=== PATIENT | female | born 1970 | race Caucasian/White ===

== ENCOUNTER 2016-11-04 15:17 | Emergency (ER) | payer OTHER, BC ==
[~2016-11-04] VITALS: Ht 162.6 cm; Wt 96.1 kg
[~2016-11-04 15:17] MED LIST: CLX20 PO; CZR50 PO; DEXILANT PO; DILT240C9 PO; DYZ PO; FLUC100T PO; LEVO125T72 PO; LORA-741 PO; NYSS/ PO; POTA-335 PO; PRED10TA PO; SNG10 PO; ZOLP5TAB PO; [UNRECOGNIZED DRUG - CODE] PO
[2016-11-04 15:29] VITALS: TEMP 36.6; Ht 162.6 cm; Wt 96.1 kg
[2016-11-04] MEDS ORDERED: CLR10 PO (15:48)
[2016-11-04] MEDS ORDERED: LEVO-519 PO (15:48)
[2016-11-04] MEDS ORDERED: PRLSR20 PO (15:48)
[2016-11-04] MEDS ORDERED: ACETAMINOPHEN 500 MG TAB PO STA (16:02)
[2016-11-04] MEDS ORDERED: TRAMADOL HCL 50 MG TAB PO STA (16:02)
[2016-11-04] MEDS ORDERED: ONDA4TAB10 SL (16:09)
[2016-11-04] MEDS ORDERED: TRAM-10 PO (16:09)
[2016-11-04] MEDS ORDERED: ONDANSETRON 4MG OD TAB PO ONE (16:15)
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
[2016-11-04 16:23] VITALS: BP 138/98; PULSE 62; O2SAT 97
[2017-02-04] MEDS ORDERED: ARFO15NE NEB (11:07)
[2017-02-04] MEDS ORDERED: ALBINS/ NEB (11:48)
[2017-02-04] MEDS ORDERED: MONT1TAB3 PO (15:48)
[2017-02-04] MEDS ORDERED: CITA40TA12 PO (15:48)
[2017-02-04] MEDS ORDERED: TRIATAB3 PO (15:48)
[2017-02-04] MEDS ORDERED: DILT120C68 PO (15:48)
[2017-02-04] MEDS ORDERED: FLUT0.15 NAE (15:48)
[2017-02-04] MEDS ORDERED: NEOM1SOL7 OTB (17:43)
== END 2016-11-04 16:25 | disposition home or self-care (01) ==
LOC: C.EDB 15:19 → C.EDD 16:25
DX: S06.0X0A Concussion without loss of consciousness, initial encounter (principal); S16.1XXA Strain of muscle, fascia and tendon at neck level, initial encounter; I10 Essential (primary) hypertension; E03.9 Hypothyroidism, unspecified; J45.909 Unspecified asthma, uncomplicated; G47.33 Obstructive sleep apnea (adult) (pediatric); Z79.899 Other long term (current) drug therapy; Z88.2 Allergy status to sulfonamides; Z88.5 Allergy status to narcotic agent; Z88.8 Allergy status to other drugs, medicaments and biological substances; V43.52XA Car driver injured in collision with other type car in traffic accident, initial encounter

== ENCOUNTER → 2016-11-07 | Outpatient (CLI) | payer OTHER, BC ==
[~2016-11-07] MED LIST changes: +ALBINS/ NEB; +AMOX875T PO; +ARFO15NE NEB; +AZIT250T PO; +BENZ100C84 PO; +CETI10TA84 PO; +CITA40TA12 PO; +CLR10 PO; -CLX20 PO; +CYCL10TA6 PO; -CZR50 PO; -DEXILANT PO; +DILT120C68 PO; -DILT240C9 PO; -DYZ PO; -FLUC100T PO; +FLUT0.15 NAE; +LEVO-519 PO; -LEVO125T72 PO; +LEVO150T9 PO; -LORA-741 PO; +MECL1TAB42 PO; +MONT1TAB3 PO; +NEOM1SOL7 OTB; -NYSS/ PO; +OMEP40CA41 PO; +ONDA4TAB10 SL; -POTA-335 PO; -PRED10TA PO; +PRED20TA PO; +PRLSR20 PO; -SNG10 PO; +TRAM-10 PO; +TRIATAB3 PO; +VNTHFA/IN INH; -ZOLP5TAB PO; -[UNRECOGNIZED DRUG - CODE] PO
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
== END | disposition home or self-care (01) ==
LOC: C.RAD1850 14:07
PROVIDERS: ATTEND Family Medicine
DX: S06.0X9A Concussion with loss of consciousness of unspecified duration, initial encounter (principal); X58.XXXA Exposure to other specified factors, initial encounter

== ENCOUNTER → 2017-01-23 | Outpatient (CLI) | payer OTHER, BC ==
[~2017-01-23] MED LIST changes: +GADAVIST IV PRN
--- NOTE | 2017-01-23 08:42 | DIAGNOSTIC IMAGING REPORT ---
MRI OF THE BRAIN COMBO CLINICAL HISTORY: Postconcussion syndrome. Vertigo. Tinnitus. COMPARISON STUDY: MRI of the brain dated 10/18/2013 and 01/05/2010. TECHNIQUE: MRI of the brain was performed utilizing various T1 and T2-weighted sequences in the axial, sagittal, and coronal planes. Contrast-enhanced sequences were acquired following the administration of 9 cc of Gadavist. FINDINGS: Brain parenchyma: There is a 6 mm enhancing extra-axial nodule along the right aspect of the anterior midline falx seen on axial postcontrast image #10. This appears to demonstrate a dural tail and is typical in appearance for a small meningioma. There is no associated mass effect. No additional enhancing lesion is seen. The brain parenchyma is otherwise normal in appearance. There is no hemorrhage or mass effect. There is no restricted diffusion to suggest acute ischemia. Polanco-white matter differentiation is preserved. No extra-axial fluid collection is seen. The cerebellar tonsils are normal in configuration. Ventricles, sulci, and cisterns: Normal in configuration. Pituitary and sella: Partially empty sella is incidentally noted. Intracranial vasculature: Normal flow voids are maintained at the skull base. Orbits: The bony orbits are grossly intact. Orbital contents are normal in appearance. Sinuses and mastoids: There is trace mucosal thickening within the maxillary antra. The remaining paranasal sinuses and the mastoid air cells are clear. Calvarium: Unremarkable. Cervical cord: Partially visualized cervical spinal cord is normal in morphology and signal intensity. IMPRESSION: 1. No acute intracranial abnormality. 2. There is a 6 mm enhancing extra-axial nodule along the right anterior interhemispheric falx. This is pathologically indeterminant but typical in appearance for a small meningioma. This is new from 01/05/2010. There is no associated mass effect. 3. No additional enhancing lesion is identified. Electronically signed by: Pa Bryan M.D. 01/23/2017 8:40 AM Dictated Date/Time: 01/23/2017 8:35 AM
--- NOTE | 2017-01-23 09:05 | DIAGNOSTIC IMAGING REPORT ---
MRI OF THE CERVICAL SPINE WITHOUT IV CONTRAST CLINICAL HISTORY: Neck pain. Left upper extremity radiculopathy. Post concussion syndrome. COMPARISON STUDY: Radiographs of the cervical spine dated 11/07/2016. MRI of the neck dated 06/09/2014. TECHNIQUE: MRI of the cervical spine is performed using various T1 and T2-weighted sequences in the axial and sagittal planes. IV contrast was not administered for this examination. FINDINGS: Cervical spine: Vertebral body height and alignment are maintained throughout the cervical spine. There is straightening of the cervical lordosis with mild reversal centered at C5. The atlantodental articulation appears maintained. The spinous processes are intact. No destructive bony lesion is identified. A tiny hemangioma is seen in the body of T1. Intervertebral discs: There is mild degenerative disc desiccation throughout the cervical spine. Disc height appears maintained. Spinal cord: The cervical spinal cord is normal in morphology and signal intensity. C2-C3: Unremarkable. C3-C4: Unremarkable. C4-C5: Mild facet arthropathy is of no consequence. The central canal and neural foramina are patent. C5-C6: A posterior disc osteophyte complex effaces the ventral subarachnoid space. The neural foramina are widely patent. C6-C7: A small posterior disc osteophyte complex effaces the ventral subarachnoid space. The neural foramina are widely patent. C7-T1: Unremarkable. Soft tissues: The prevertebral and paraspinous soft tissues are within normal limits. Again seen is a 1.4 cm round T2 hyperintense lesion within the left masseter muscle. Shotty cervical lymph nodes are identified. Brain parenchyma: Partially imaged brain parenchyma at the skull base is within normal limits. IMPRESSION: 1. The cervical spinal cord is normal in morphology and signal intensity. 2. Minimal spondylotic change as detailed above. See discussion for detailed level by level analysis. 3. A 1.4 cm T2 hyperintense lesion is seen in the left masseter muscle. This is pathologically indeterminant, but overall similar in appearance to the 06/09/2014 MRI of the neck. Dictated: 01/23/2017 8:41 AM Transcribed: 01/23/2017 9:04 AM Júnior Electronically signed by: Pa Bryan M.D. 01/23/2017 9:05 AM Dictated Date/Time: 01/23/2017 8:41 AM
== END | disposition home or self-care (01) ==
LOC: C.MRIBC 06:40
PROVIDERS: ATTEND Physician Assistant
DX: F07.81 Postconcussional syndrome (principal)

== ENCOUNTER 2017-02-04 15:48 | Emergency (ER) | payer BC, OTHER ==
[~2017-02-04] VITALS: Ht 162.6 cm; Wt 95.8 kg
[~2017-02-04 15:48] MED LIST changes: -AMOX875T PO; -AZIT250T PO; -BENZ100C84 PO; -CETI10TA84 PO; -CYCL10TA6 PO; -GADAVIST IV PRN; -LEVO150T9 PO; -MECL1TAB42 PO; -NEOM1SOL7 OTB; -OMEP40CA41 PO; -PRED20TA PO; -VNTHFA/IN INH
[2017-02-04 16:01] VITALS: TEMP 37.2; Ht 162.6 cm; Wt 95.8 kg
[2017-02-04] MEDS ORDERED: METHYLPREDNISOLONE 125 MG VIAL IV STA (16:33)
[2017-02-04 16:45] VITALS: PULSE 102; O2SAT 95
[2017-02-04] MEDS ORDERED: ALBUT/IPRATROP 3MG/0.5MG NEB 3 ML VIAL INH ONE (16:45)
[2017-02-04 17:06] LABS: BASO % 0.1 %; BASO ABS # 0.01 K/uL (0-0.2); COMPLETE YES; EOS % 0.2 %; HEMATOCRIT 42.4 % (37-47); IG% 0.8 %; LYMPH % 16.4 %; LYMPH ABS # 2.39 K/uL (1.2-3.4); MEAN CELL VOLUME 84.5 fL (80-100); MEAN CORPUSCULAR HEMOGLOBIN 28.9 pg (25-34); MEAN CORPUSCULAR HGB CONC 34.2 g/dl (32-36); MEAN PLATELET VOLUME 9.3 fL (7.4-10.4); MONO % 4.8 %; NEUT % 77.7 %; PLATELET COUNT 469 K/uL (130-400); RED BLOOD COUNT 5.02 M/uL (4.2-5.4)
[2017-02-04 17:25] LABS: CREATININE 0.91 mg/dl (0.60-1.20)
[2017-02-04 17:26] LABS: CALCIUM 8.6 mg/dl (8.5-10.1)
[2017-02-04] MEDS ORDERED: OMEP40CA41 PO (17:30)
[2017-02-04] MEDS ORDERED: LEVO150T9 PO (17:30)
[2017-02-04] MEDS ORDERED: CETI10TA84 PO (17:31)
[2017-02-04] MEDS ORDERED: MECL1TAB42 PO (17:31)
[2017-02-04 17:32] LABS: PREG INTERNAL NEGATIVE QC NEG CLEAR BACKGROUND; PREG INTERNAL POSITIVE QC POS CONTROL LINE
[2017-02-04] MEDS ORDERED: VNTHFA/IN INH (17:34)
[2017-02-04] MEDS ORDERED: ONDA4TAB10 SL (17:34)
[2017-02-04] MEDS ORDERED: CYCL10TA6 PO (17:34)
[2017-02-04 17:37] LABS: POTASSIUM 4.1 mmol/L (3.5-5.1)
[2017-02-04] MEDS ORDERED: AZIT250T PO (17:43)
[2017-02-04] MEDS ORDERED: NEOM1SOL25 OTB (17:43)
[2017-02-04] MEDS ORDERED: AMOX875T PO (17:43)
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
[2017-02-04] MEDS ORDERED: PRED20TA PO (18:53)
[2017-02-04] MEDS ORDERED: BENZ100C84 PO (18:53)
[2017-02-04 19:23] VITALS: BP 151/89; PULSE 106; O2SAT 92
--- NOTE | 2017-02-04 19:28 | EMERGENCY ROOM VISIT NOTE ---
History Report prepared by Jose: Ama Blackburn Under the Supervision of: Dr. Arnie Mcfarland M.D. First contact with patient: 16:20 Chief Complaint: COUGH Stated Complaint: COUGH,CONGESTION,CHEST TIGHTNESS,EAR PAIN History of Present Illness The patient is a 46 year old female who presents to the Emergency Room with complaints of a persistent cough for the past 1 week.The cough is mostly non- productive. She has been taking Robitussin for her cough, with very minimal improvement. She reports she has been "sitting on the couch" all week because the cough is so bad. She states her cough has worsened throughout the week, so she saw her Bead Stringer's PA 2 days ago, who she follows with for a history of asthma, and was placed on Zithromax, a Prednisone taper and ear drops for a sore left ear. She is currently down to 10 mg a day of the Prednisone. She reports she saw no improvement with the medications, and began experience pain in her right ear as well, so called her Pulmonologists office yesterday and one of the PA's placed her on Augmentin. The patient states her chest feels very "tight" currently. She has undergone bronchoscopes in the past for her history of asthma but has never been intubated. She notes she uses an inhaler regularly at home. She is a non-smoker. She denies any recent fevers. 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 A total of 10 systems reviewed and were otherwise negative. Past Medical & Surgical Medical Problems: (1) Asthma, Unspecified (2) Chronic Sinusitis Nos (3) Hypertension Nos (4) Hypothyroidism Nos (5) Obesity, Nos (6) Obstructive Sleep Apnea (Adult) (Pediatric) (7) Ovarian Cyst Nec/Nos (8) Posttraumatic stress disorder Surgical Problems: (1) No history of previous surgery Family History FH: cancer FH: diabetes mellitus FH: gallbladder disease FH: heart disease FH: hypertension FH: lung disease Social History Smoking Status: Never Smoker Alcohol Use: occasionally Marital Status: Occupation Status: employed Current/Historical Medications Scheduled Amoxicillin & Pot Clavulanate (Augmentin 875-125 mg), 1 TAB PO Q12 Arformoterol Tartrate (Brovana), 15 MCG NEB BID Azithromycin (Zithromax), 250 MG PO DAILY Cetirizine (Zyrtec), 10 MG PO DAILY Citalopram Hydrobromide (Celexa), 20 MG PO DAILY Diltiazem Hcl Ext Rel (Tiazac), 120 MG PO BID Fluticasone Propionate (Nasal) (Flonase Allergy Relief), 2 SPRAYS REANNA DAILY Levothyroxine Sodium (Levothyroxine Sodium), 150 MCG PO DAILY Montelukast Sodium (Singulair), 10 MG PO HS Armnqrmp-Fywwmoxpi-Vm (Otic) (Neomycin/Polymyxin/Hc), 3 DROPS OTB TID Omeprazole (Prilosec), 40 MG PO BID Prednisone (Prednisone), 0 PO DAILY Triamterene/Hctz (Triamterene/Hctz 37.5-25MG), 1 TAB PO DAILY Scheduled PRN Albuterol Hfa (Ventolin Hfa), 2 PUFFS INH Q4H PRN for Asthma Symptoms Albuterol Sulf (Proventil 0.083% 2.5MG/3ML), 2.5 MG NEB Q4-6HRS PRN for SOB/ Wheezing Benzonatate (Tessalon Perles), 100 MG PO Q6 PRN for Cough Cyclobenzaprine Hcl (Flexeril), 10 MG PO TID PRN for Neck Tightness/Pain Meclizine Hcl (Meclizine Hcl), 25 MG PO QID PRN for Dizziness or Vertigo Ondasetron Odt (Zofran Odt), 4 MG SL BID PRN for Nausea Allergies Coded Allergies: Codeine (Verified Allergy, Severe, LETHARY, HALLUCINATIONS, 11/04/16) Cefuroxime (Verified Allergy, Mild, HIVES, 05/01/12) Moxifloxacin (Verified Allergy, Mild, HIVES, 05/01/12) Piroxicam (Verified Allergy, Mild, 05/01/12) Quinolones (Verified Allergy, Mild, 05/01/12) Sulfa Drugs (Verified Allergy, Mild, 04/09/11) Sulfamethoxazole (Verified Allergy, Mild, 04/09/11) Trimethoprim (Verified Allergy, Mild, 04/09/11) Meloxicam (Verified Adverse Reaction, Unknown, CONFUSED , LETHARGY, 11/04/16 ) Physical Exam Vital Signs Date Time Temp Pulse Resp B/P Pulse Ox O2 Delivery O2 Flow Rate FiO2 02/04/17 18:28 97 Room Air 02/04/17 17:52 108 18 129/73 93 Room Air 02/04/17 16:59 Room Air 02/04/17 16:45 102 22 95 Room Air 02/04/17 16:01 37.2 120 16 132/88 94 Room Air Physical Exam Constitutional: Vital signs reviewed. Eyes: Pupils are equal round reactive to light. Conjunctiva are noninjected. ENT: Pharynx is clear without erythema or exudate. Mucous membranes are moist. Left TM is erythematous. Right TM is erythematous and slightly bulging. Neck supple without meningeal signs. Respiratory: Diffuse wheezing bilaterally. Breath sounds are equal bilaterally. Cardiovascular: Tachycardic heart rate, regular rhythm. Heart rate is 102. No rubs or gallops. GI: Soft, nondistended and nontender. Bowel sounds are present. Musculoskeletal: No peripheral edema. No lower extremity tenderness. Integumentary: No cyanosis. Neurological: The patient is awake and alert. No focal deficits. Psychiatric: Normal affect. Medical Decision & Procedures ER Provider Diagnostic Interpretation: This X-Ray was reviewed and interpreted by myself and the radiologist. CHEST 2 VIEWS ROUTINE CLINICAL HISTORY: Pneumonia COMPARISON STUDY: 12/09/2014 FINDINGS: The heart is normal in size. There is no failure. There is no lobar consolidation. There is slight prominence of the left basal interstitial markings. While likely atelectatic, a minimal inflammatory process could appear similar. IMPRESSION: Slight prominence of the left basal markings, likely atelectatic although a minimal inflammatory process could appear similar Electronically signed by: Hira Baker M.D. 02/04/2017 6:09 PM Laboratory Results 02/04/17 16:50 Red Blood Count 5.02, Mean Corpuscular Volume 84.5, Mean Corpuscular Hemoglobin 28.9, Mean Corpuscular Hemoglobin Concent 34.2, Mean Platelet Volume 9.3, Neutrophils (%) (Auto) 77.7, Lymphocytes (%) (Auto) 16.4, Monocytes (%) (Auto) 4.8, Eosinophils (%) (Auto) 0.2, Basophils (%) (Auto) 0.1, Neutrophils # (Auto) 11.35, Lymphocytes # (Auto) 2.39, Monocytes # (Auto) 0.70, Eosinophils # (Auto) 0.03, Basophils # (Auto) 0.01 02/04/17 16:50 Test 02/04/17 16:50 White Blood Count 14.60 K/uL (4.8-10.8) Red Blood Count 5.02 M/uL (4.2-5.4) Hemoglobin 14.5 g/dL (12.0-16.0) Hematocrit 42.4 % (37-47) Mean Corpuscular Volume 84.5 fL (80-100) Mean Corpuscular Hemoglobin 28.9 pg (25-34) Mean Corpuscular Hemoglobin Concent 34.2 g/dl (32-36) Platelet Count 469 K/uL (130-400) Mean Platelet Volume 9.3 fL (7.4-10.4) Neutrophils (%) (Auto) 77.7 % Lymphocytes (%) (Auto) 16.4 % Monocytes (%) (Auto) 4.8 % Eosinophils (%) (Auto) 0.2 % Basophils (%) (Auto) 0.1 % Neutrophils # (Auto) 11.35 K/uL (1.4-6.5) Lymphocytes # (Auto) 2.39 K/uL (1.2-3.4) Monocytes # (Auto) 0.70 K/uL (0.11-0.59) Eosinophils # (Auto) 0.03 K/uL (0-0.5) Basophils # (Auto) 0.01 K/uL (0-0.2) RDW Standard Deviation 43.6 fL (36.4-46.3) RDW Coefficient of Variation 14.1 % (11.5-14.5) Immature Granulocyte % (Auto) 0.8 % Immature Granulocyte # (Auto) 0.12 K/uL (0.00-0.02) Anion Gap 9.0 mmol/L (3-11) Est Creatinine Clear Calc Drug Dose 88.6 ml/min Estimated GFR () 88.9 Estimated GFR (Non- 76.7 BUN/Creatinine Ratio 20.0 (10-20) Calcium Level 8.6 mg/dl (8.5-10.1) Human Chorionic Gonadotropin, Qual NEG (NEG) Laboratory results as reviewed by me. Medications Administered Medications (Trade) Dose Ordered Sig/Chavez Route Start Time Stop Time Status Last Admin Dose Admin Methylprednisolone Sodium Succinate (Solu-Medrol IV) 125 mg NOW STAT IV 02/04/17 16:33 02/04/17 16:35 DC 02/04/17 17:04 125 MG Albuterol/ Ipratropium (Duoneb) 12 ml ONE ONCE INH 02/04/17 16:45 02/04/17 16:46 DC 02/04/17 16:45 12 ML ED Course 1624: The patient was evaluated in room C11. A complete history and physical exam was performed. 1633: Solu-Medrol 125 mg IV. 1645: DuoNeb 12 ml INH. 1730: I reevaluated the patient. Her wheezing is significantly improved and she feels better. She is not coughing as much and has better air entry on exam. 1815: I reevaluated the patient. She is feeling better but still coughing. I discussed her X-Ray results. We will try having her do an ambulation trial. Her pulse oximetry is 96 on room air. She still has some wheezing on exam. 1840: Nursing informed me the patients Oxygen was 95-97% the entire time she was walking. 1845: I reevaluated the patient. She does not want to remain in the hospital for further evaluation and management. She is still coughing but states she will follow up with her Bead Stringer. I discussed her discharge instructions and she verbalized complete understanding and agreement. Medical Decision This is a 46-year-old female who presents with cough and shortness of breath. Differential diagnosis includes acute asthma exacerbation, bronchitis, pneumonia , pneumothorax. I did perform a limited focused review of portions of the patient's old chart on the electronic medical record. The patient has had no recent pertinent visits to this hospital. I did evaluate the patient as noted above. She is presenting with shortness of breath and cough. She is on 2 antibiotics currently and prednisone. She has diffuse wheezing on examination. IV access was established. The patient was placed on a continuous hat block maker. I did treat her with an hour-long continuous DuoNeb. She was also given Solu-Medrol IV. I did order and personally review the patient's chest x-ray as described above. There is no evidence of consolidation or pneumonia. There are some increased markings on the left side which the radiologist thought was likely inflammation or atelectasis. I did order and review the patient's blood work as noted in the electronic medical record. Her white count is elevated but this is likely secondary to her steroid use. I did reassess the patient several times. O2 saturations remained in the high 90s at rest and with ambulation. She does state that she feels better. She still had wheezing on examination but it was significantly improved with improved air entry as well. The patient did not wish to be admitted to the hospital. I did give her a prescription for Tessalon Perles and prednisone. I did recommend close follow up with her pharmacist technician and told to return should she have any worsening symptoms. She will continue to 2 antibiotics prescribed by her doctor. She was discharged in good condition. Impression Primary Impression: Asthma exacerbation Additional Impressions: Bronchitis Otitis media Scribe Attestation The scribe's documentation has been prepared under my direct and personally reviewed by me in its entirety. I confirm that the note above accurately reflects all work, treatment, procedures, and medical decision making performed by me. Departure Information Dispostion Home / Self-Care Prescriptions Prednisone (Prednisone) 20 Mg Tab 0 PO DAILY, #14 TAB 3 TABS DAILY FOR 2 DAYS, THEN 2 TABS DAILY FOR 2 DAYS, THEN 1 TAB DAILY FOR 2 DAYS, THEN 1/2 TAB DAILY FOR 2 DAYS. Prov: Arnie Mcfarland M.D. 02/04/17 Benzonatate (Tessalon Perles) 100 Mg Cap 100 MG PO Q6 Y for Cough, #20 CAP Prov: Arnie Mcfarland M.D. 02/04/17 Referrals Stacy Aceves M.D. (PCP) Patient Instructions Asthma - [facility], [facility] Additional Instructions You have been examined and treated today on an emergency basis only. This is not a substitute for, or an effort to provide, complete comprehensive medical care. It is impossible to recognize and treat all injuries or illnesses in a single emergency department visit. It is therefore important that you follow up closely with your physician in 48 hours. Call as soon as possible for an appointment. Return for worsening symptoms or if you develop fever or any other concerning symptoms. Problem Qualifiers Additional Impressions: Otitis media Otitis media type: other nonsuppurative Laterality: bilateral Chronicity: acute Recurrence: not specified as recurrent Qualified Codes: H65.193 - Other acute nonsuppurative otitis media, bilateral
== END 2017-02-04 19:23 | disposition home or self-care (01) ==
LOC: C.EDB 15:49 → C.EDC 19:23
DX: J45.901 Unspecified asthma with (acute) exacerbation (principal); H65.93 Unspecified nonsuppurative otitis media, bilateral; R05 Cough; I10 Essential (primary) hypertension; G47.33 Obstructive sleep apnea (adult) (pediatric); E66.9 Obesity, unspecified; E03.9 Hypothyroidism, unspecified; Z79.899 Other long term (current) drug therapy

== ENCOUNTER → 2018-06-11 | Outpatient (CLI) | payer OTHER ==
[~2018-06-11] MED LIST changes: +AMOX875T PO; +AZIT250T PO; +CETI10TA84 PO; -CLR10 PO; +CYCL10TA6 PO; +GADAVIST IV PRN; -LEVO-519 PO; +LEVO150T9 PO; +MECL1TAB42 PO; +NEOM1SOL OTB; +OMEP40CA41 PO; -PRLSR20 PO; -TRAM-10 PO; +VNTHFA/IN INH
--- NOTE | 2018-06-11 08:31 | DIAGNOSTIC IMAGING REPORT ---
BRAIN COMBO CLINICAL HISTORY: D32.9 [id number] meningioma COMPARISON STUDY: No previous studies for comparison. TECHNIQUE: Utilizing a 1.5 Amanda magnet and dedicated coil, multiplanar, multiecho imaging of the brain was performed pre and postcontrast administration. IV administration of 9.5 mL of Gadavist contrast was uneventful. FINDINGS: No change from the prior exam. 6 mm enhancing nodule immediately adjacent to the anterior right interhemispheric falx. Signal characteristics of the cerebellar as well as cerebral hemispheres are unremarkable. Ventricular system is midline. No additional abnormalities identified. Sella and parasellar regions are unremarkable. IMPRESSION: 1. Stable 6 mm meningioma right parasagittal interhemispheric falx region.. 2. Remainder the study is unremarkable. 3. No change from the prior study. The above report was generated using voice recognition software. It may contain grammatical, syntax or spelling errors. Electronically signed by: Silvano Mckeon M.D. 06/11/2018 8:30 AM Dictated Date/Time: 06/11/2018 8:24 AM
== END | disposition home or self-care (01) ==
LOC: C.MRIBC 07:21
PROVIDERS: ATTEND Psychiatry & Neurology Neurology
DX: D32.9 Benign neoplasm of meninges, unspecified (principal)